=== PATIENT | female | born 1960 | race African-American/Black ===

== ENCOUNTER → 2016-06-09 | Outpatient (CLI) | payer OTHER | LOC: CAT 16:00 | DX: Z13.6 Encounter for screening for cardiovascular disorders (principal) ==

== ENCOUNTER 2020-08-28 23:13 | Emergency (ER) | payer OTHER ==
[~2020-08-28] VITALS: Ht 172.7 cm; Wt 68.0 kg
[2020-08-28] MEDS ORDERED: LISINOPRIL10 MG PO (23:15)
[2020-08-28] MEDS ORDERED: LIPITOR10 MG PO (23:15)
[2020-08-28] MEDS ORDERED: METFORMIN HCL500 MG PO (23:15)
[2020-08-29 00:11] LABS: BE(vivo) -0.9 mmol/L (-2 to +3); PCO2 35.8 mmHg (35.0-45.0); PO2 88.3 mmHg (80.0-100.0); pH 7.426 (7.360-7.450)
[2020-08-29 01:09] VITALS: BP 138/72
== END 2020-08-29 01:10 | disposition home or self-care (01) ==
LOC: ER 23:13
PROVIDERS: Emergency Medicine
DX: Z57.5 Occupational exposure to toxic agents in other industries (principal); Z79.84 Long term (current) use of oral hypoglycemic drugs